=== PATIENT | male | born 1995 | race Caucasian/White ===

== ENCOUNTER → 2023-08-23 | Outpatient (REF) | payer OTHER ==
[2023-08-23 19:11] LABS: CHLAMYDIA DNA AMPLIFICATION POSITIVE (NEGATIVE); GC DNA AMPLIFICATION NEGATIVE (NEGATIVE)
== END ==
LOC: M LAB REF 16:29
PROVIDERS: ATTEND Nurse Practitioner Family
DX: Z11.3 Encounter for screening for infections with a predominantly sexual mode of transmission (principal)